=== PATIENT | female | born 1980 | race Caucasian/White ===

== ENCOUNTER 2020-10-27 19:52 | Emergency (ER) | payer OTHER ==
[~2020-10-27] VITALS: Ht 167.6 cm; Wt 78.0 kg
[2020-10-27] MEDS ORDERED: METOCLOPRAMIDE HCL 10MG/2ML VIAL IV STA (20:14)
[2020-10-27] MEDS ORDERED: ACETAMINOPHEN 325MG TABLET PO STA (20:14)
[2020-10-27] MEDS ORDERED: SODIUM CHLORIDE 0.9% 1,000 ML IV ONE (20:15)
[2020-10-27 20:38] LABS: BASOPHILS % 0.5 % (0.0-2.0); EOSINOPHILS % 0.4 % (0.0-5.0); HEMATOCRIT. 42.1 % (36.0-48.0); HEMOGLOBIN. 14.6 g/dL (12.0-16.0); LYMPHOCYTES % 36.6 % (20.0-50.0); MEAN CORPUSCULAR HEMOGLOBIN 29.6 pg (28.0-32.0); MEAN CORPUSCULAR VOLUME 85.6 fL (81.0-99.0); MEAN PLATELET VOLUME 9.9 fl (7.4-10.4); MONOCYTES % 4.9 % (2.0-8.0); NEUTROPHILS % 57.6 % (40.0-76.0); PLATELET 183 x1000/uL (130-400); RED BLOOD CELL COUNT 4.92 mill/uL (4.2-5.4); RED CELL DISTRIBUTION WIDTH 13.3 % (11.6-14.6)
[2020-10-27 20:43] LABS: CHLORIDE 106 mEq/L (98-107)
[2020-10-27 20:46] LABS: HCG SCREEN NEGATIVE
[2020-10-27 20:48] LABS: PROTHROMBIN TIME 10.9 sec (9.6-11.0)
[2020-10-27 22:00] VITALS: BP 124/92
[2020-10-27] MEDS ORDERED: DEXAMETHASONE 10 MG/ML VIAL IV NR (22:15)
[2020-10-27] MEDS ORDERED: KETOROLAC 15MG/ML VIAL IV NR (22:15)
[2020-10-27] MEDS ORDERED: MAGNESIUM 2 G PREMIX 50 ML IV ONE (23:00)
[2020-10-27] MEDS ORDERED: METO-293 MT (23:07)
== END 2020-10-27 23:58 | disposition home or self-care (01) ==
LOC: ER 19:52
DX: G43.909 Migraine, unspecified, not intractable, without status migrainosus (principal); R53.1 Weakness; I10 Essential (primary) hypertension
CPT/HCPCS: 36415; 70450; 80053; 83690; 84484; 84703; 85025; 85610; 93005; 96365; 96375; 99285; J1100; J1885; J2765; J3475; J7030